=== PATIENT | male | born 2000 | race Hispanic/Latino ===

== ENCOUNTER 2024-04-05 23:13 | Inpatient (IN) | payer SELFPAY ==
[2024-04-06] MEDS ORDERED: Cefepime 2 GM VIAL ONE (01:00)
[2024-04-06] MEDS ORDERED: Sodium Chloride 0.9% 100 ML ONE (01:00)
[2024-04-06] MEDS ORDERED: Boostrix 0.5 ML (Tdap) VIAL (>/=7 yrs of age) ONE (01:05)
[2024-04-06 01:17] LABS: #Basophils Less than 0.03 10x3/uL (0.0-0.2); %Basophils 0.1 % (0.0-1.0); %Eosinophils 0.6 % (0.0-10.0); %Lymphocytes 11.4 % (21.0-51.0); %Monocytes 8.3 % (0.0-10.0); %Neutrophils 79.3 % (42.0-75.0); Hematocrit 44.8 % (42.0-52.0); Hemoglobin 15.9 g/dL (14.0-18.0); Mean Corpuscular HGB CONC 35.5 g/dL (32.0-36.0); Mean Corpuscular Hemoglobin 29.5 pg (27.0-31.0); Mean Corpuscular Volume 83.1 fL (78.0-98.0); Mean Platelet Volume 9.7 fL (7.4-10.4); Platelet Count 310 10x3/uL (130-400); RBC Distribution Width 11.4 % (11.5-14.5); Red Blood Cell (RBC) Count 5.39 mill/uL (4.70-6.10)
[2024-04-06 01:36] LABS: ALT (SGPT) 36 U/L (8-55); AST (SGOT) 35 U/L (5-34); Albumin 4.5 g/dL (3.5-5.0); Alkaline Phosphatase 117 U/L (40-110); Anion Gap 17 mmol/L (10-20); BUN (Urea Nitrogen) 6 mg/dL (8.9-20.6); Bilirubin, Total 0.8 mg/dL (0.2-1.2); Calc. Creatinine Clearance 0 mL/min (70-130); Calcium 10.4 mg/dL (7.8-10.44); Carbon Dioxide 27 mmol/L (22-29); Chloride 99 mmol/L (98-107); Estimated GFR 131; Globulin 4.3 g/dL (2.4-3.5); Glucose 104 mg/dL (70-105); Potassium 3.7 mmol/L (3.5-5.1); Protein, Total 8.8 g/dL (6.0-8.3); Sodium 139 mmol/L (136-145)
[2024-04-06] MEDS ORDERED: Morphine 4 MG/ML VIAL ONE ×2 (01:43→02:47)
[2024-04-06] MEDS ORDERED: diphenhydrAMINE 50 MG/ML VIAL ONE (02:33)
[2024-04-06] MEDS ORDERED: Ipratropium/Albuterol 3 ML NEB NEB PRN (03:36)
[2024-04-06] MEDS ORDERED: Ondansetron PF 4 MG/2 ML Vial IVP PRN (03:36)
[2024-04-06] MEDS ORDERED: Morphine 2 MG/ML VIAL SLOW IVP PRN (03:38)
[2024-04-06] MEDS: Vancomycin (BATCH) 1.5 GM in Premix 1 BAG IVPB SCH (03:42)
[2024-04-06] MEDS ORDERED: Acetaminophen 325 MG TAB PO SCH (03:45)
[2024-04-06] MEDS ORDERED: Sodium Chloride 0.9% 1,000 ML IV SCH (03:45)
[2024-04-06] MEDS: Sodium Chloride 0.9% 1,000 ML IV SCH (04:24)
[2024-04-06 04:35] VITALS: BMI 23.3
[2024-04-06] MEDS: Acetaminophen 325 MG TAB PO SCH (06:05)
[2024-04-06] MEDS: traMADol HCl 50 MG TAB PO SCH (06:08)
[2024-04-06] MEDS: Famotidine/PF 20 mg/2ml Vial SLOW IVP SCH (09:23)
[2024-04-06] MEDS: Piperacillin/Tazobactam 3.375 GM in Sodium Chloride 0.9% 100 ML IVPB SCH ×2 (09:23→14:00)
[2024-04-06] MEDS: Morphine 2 MG/ML VIAL SLOW IVP PRN (09:24)
[2024-04-06] MEDS ORDERED: Bupivacaine PF 0.5% 30 ML VIAL ONE (15:40)
[2024-04-06] MEDS ORDERED: Thrombin 5000 UNITS/5 ML VIAL ONE (15:40)
[2024-04-06] MEDS ORDERED: Bacitracin Zinc Ointment 30 gm TUBE ONE (15:40)
[2024-04-06] MEDS ORDERED: fentaNYL PF 100 MCG/2 ML SYRINGE ONE (16:07)
[2024-04-06] MEDS ORDERED: Ketorolac Tromethamine 30 MG (1 mL) VIAL ONE (16:14)
[2024-04-06] MEDS ORDERED: Dexamethasone 20 MG/5 ML VIAL ONE (16:14)
[2024-04-06] MEDS ORDERED: Ondansetron PF 4 MG/2 ML Vial ONE (16:14)
[2024-04-06] MEDS ORDERED: Lidocaine 1% PF 5 ML VIAL ONE (16:15)
[2024-04-06] MEDS ORDERED: PROPOFOL 20 ML ONE (16:16)
[2024-04-06] MEDS ORDERED: Ondansetron HCl/PF 4 MG/2 ML Vial IVP PRN (17:31)
[2024-04-06] MEDS ORDERED: Morphine Sulfate 2 MG/ML SYRINGE SLOW IVP PRN (17:31)
[2024-04-06] MEDS ORDERED: Promethazine HCl 25 MG/ML VIAL IM PRN ×2 (17:31→18:41)
[2024-04-06] MEDS ORDERED: PACU-Morphine 4MG/ML VIAL SLOW IVP PRN (17:31)
[2024-04-06] MEDS ORDERED: HYDROmorphone 2 MG/ML VIAL SLOW IVP PRN (17:31)
[2024-04-06] MEDS ORDERED: Meperidine HCl/PF 25 MG (1 mL) VIAL IM PRN (18:42)
[2024-04-07 06:06] LABS: #Basophils Less than 0.03 10x3/uL (0.0-0.2); #Eosinphils Less than 0.03 10x3/uL (0.0-0.7); %Monocytes 5.3 % (0.0-10.0); %Neutrophils 86.4 % (42.0-75.0); Hematocrit 40.6 % (42.0-52.0); Hemoglobin 13.7 g/dL (14.0-18.0); Mean Corpuscular HGB CONC 33.7 g/dL (32.0-36.0); Mean Corpuscular Hemoglobin 29.7 pg (27.0-31.0); Mean Corpuscular Volume 88.1 fL (78.0-98.0); Mean Platelet Volume 10.2 fL (7.4-10.4); Platelet Count 292 10x3/uL (130-400); RBC Distribution Width 11.5 % (11.5-14.5); Red Blood Cell (RBC) Count 4.61 mill/uL (4.70-6.10)
[2024-04-07 06:25] LABS: Anion Gap 16 mmol/L (10-20); BUN (Urea Nitrogen) 10 mg/dL (8.9-20.6); Calc. Creatinine Clearance 145 mL/min (70-130); Calcium 9.3 mg/dL (7.8-10.44); Carbon Dioxide 19 mmol/L (22-29); Chloride 104 mmol/L (98-107); Estimated GFR 132; Glucose 113 mg/dL (70-105); Potassium 3.9 mmol/L (3.5-5.1); Sodium 135 mmol/L (136-145)
[2024-04-07] MEDS: Morphine 4 MG/ML VIAL SLOW IVP PRN (06:45)
[2024-04-07 11:20] VITALS: BMI 23.3
[2024-04-07] MEDS: Piperacillin/Tazobactam 3.375 GM VIAL ONE (12:45)
[2024-04-07] MEDS: Sodium Chloride 0.9% 100 ML ONE (12:45)
[2024-04-07] MEDS: Clindamycin/D5W 900 MG in Premix 1 BAG IVPB SCH (12:46)
[2024-04-08] MEDS: Vancomycin (BATCH) 1.5 GM in Premix 1 BAG IVPB SCH (00:55)
[2024-04-08 05:22] LABS: #Basophils Less than 0.03 10x3/uL (0.0-0.2); %Basophils 0.3 % (0.0-1.0); %Eosinophils 1.2 % (0.0-10.0); %Monocytes 10.5 % (0.0-10.0); %Neutrophils 55.7 % (42.0-75.0); Hematocrit 37.3 % (42.0-52.0); Hemoglobin 12.8 g/dL (14.0-18.0); Mean Corpuscular HGB CONC 34.3 g/dL (32.0-36.0); Mean Corpuscular Hemoglobin 29.1 pg (27.0-31.0); Mean Corpuscular Volume 84.8 fL (78.0-98.0); Mean Platelet Volume 10.3 fL (7.4-10.4); Platelet Count 294 10x3/uL (130-400); RBC Distribution Width 11.5 % (11.5-14.5)
[2024-04-08] MEDS: Vancomycin (BATCH) 1.25 GM in Premix 1 BAG IVPB SCH (06:36)
[2024-04-08] MEDS ORDERED: Vancomycin 1 GM in Premix 1 BAG IVPB SCH (09:00)
[2024-04-08] MEDS: Enoxaparin 40 MG (0.4 mL) SYRINGE SC SCH (09:33)
[2024-04-09 05:19] LABS: Vancomycin, Random 24.7 ug/mL (See Comment)
[2024-04-09] MEDS: Vancomycin (BATCH) 1.25 GM in Premix 1 BAG IVPB SCH (08:15)
[2024-04-10 10:01] LABS: Vancomycin, Random 11.9 ug/mL (See Comment)
[2024-04-10] MEDS: Lactulose 20 GM (30 mL) UDCUP PO SCH (14:50)
[2024-04-10] MEDS: traMADol HCl 50 MG TAB PO PRN (15:43)
[2024-04-10] MEDS: Senokot S 8.6-50 MG TAB PO SCH (20:32)
[2024-04-11] MEDS: Polyethylene Glycol 3350 17 GM Packet PO SCH (09:05)
[2024-04-11 12:27] LABS: #Basophils Less than 0.03 10x3/uL (0.0-0.2); %Basophils 0.3 % (0.0-1.0); %Eosinophils 2.5 % (0.0-10.0); %Lymphocytes 25.7 % (21.0-51.0); %Monocytes 8.3 % (0.0-10.0); %Neutrophils 62.8 % (42.0-75.0); Hematocrit 46.5 % (42.0-52.0); Hemoglobin 15.8 g/dL (14.0-18.0); Mean Corpuscular Hemoglobin 29.4 pg (27.0-31.0); Mean Corpuscular Volume 86.6 fL (78.0-98.0); Mean Platelet Volume 9.6 fL (7.4-10.4); Platelet Count 364 10x3/uL (130-400); RBC Distribution Width 11.3 % (11.5-14.5); Red Blood Cell (RBC) Count 5.37 mill/uL (4.70-6.10)
[2024-04-11] MEDS ORDERED: Bacitracin Zinc Ointment 30 gm TUBE ONE (18:51)
[2024-04-11] MEDS ORDERED: Thrombin 5000 UNITS/5 ML VIAL ONE (18:52)
[2024-04-11] MEDS ORDERED: Mineral Oil Sterile 10 ML VIAL ONE (18:52)
[2024-04-11] MEDS ORDERED: Bupivacaine PF 0.5% 30 ML VIAL ONE (18:52)
[2024-04-11] MEDS ORDERED: PROPOFOL 20 ML ONE (19:01)
[2024-04-11] MEDS ORDERED: Lidocaine 1% PF 5 ML VIAL ONE ×2 (19:02→19:19)
[2024-04-11] MEDS ORDERED: Dexamethasone 4 mg/ml Vial ONE (19:02)
[2024-04-11] MEDS ORDERED: Ondansetron PF 4 MG/2 ML Vial ONE (19:02)
[2024-04-11] MEDS ORDERED: fentaNYL 50 mcg/mL 1 mL Vial ONE ×4 (19:29→21:47)
[2024-04-11] MEDS ORDERED: Ondansetron HCl/PF 4 MG/2 ML Vial IVP PRN (21:10)
[2024-04-11] MEDS ORDERED: Promethazine HCl 25 MG/ML VIAL IM PRN (21:10)
[2024-04-11] MEDS ORDERED: Ketorolac Tromethamine 30 MG (1 mL) VIAL ONE (21:35)
[2024-04-11] MEDS: Famotidine 20 MG TAB PO SCH (22:15)
[2024-04-12 04:40] LABS: Vancomycin, Random 21.1 ug/mL (See Comment)
[2024-04-12 15:55] VITALS: BP 123/72; TEMP 98.6
== END 2024-04-12 17:57 | disposition home or self-care (01) | DRG 574 ==
LOC: ERS 23:13 → SURG A 04-06 01:50
PROVIDERS: ADMIT Surgery; ATTEND Surgery
PROC: 0LB70ZZ Excision of Right Hand Tendon, Open Approach (ICD-10-PCS; principal; 2024-04-06)
PROC: 01Q60ZZ Repair Radial Nerve, Open Approach (ICD-10-PCS; 2024-04-06)
PROC: 0JBJ0ZZ Excision of Right Hand Subcutaneous Tissue and Fascia, Open Approach (ICD-10-PCS; 2024-04-06)
PROC: 0HRFX73 Replacement of Right Hand Skin with Autologous Tissue Substitute, Full Thickness, External Approach (ICD-10-PCS; 2024-04-11)
PROC: 0JBJ0ZZ Excision of Right Hand Subcutaneous Tissue and Fascia, Open Approach (ICD-10-PCS; 2024-04-11)
DX: L02.511 Cutaneous abscess of right hand (principal); I96 Gangrene, not elsewhere classified; M65.841 Other synovitis and tenosynovitis, right hand; T23.021A Burn of unspecified degree of single right finger (nail) except thumb, initial encounter; Z88.1 Allergy status to other antibiotic agents; B95.61 Methicillin susceptible Staphylococcus aureus infection as the cause of diseases classified elsewhere
CPT/HCPCS: 36415; 80048; 80053; 80202; 82565; 83605; 85025; 87040; 87070; 87077; 87205; 90471; 90715; 96365; 96375; 96376; 97139; J0665; J0692; J1100; J1200; J1650; J1885; J2272; J2405; J2543; J2704; J3010; J3370; J3490; J7030